=== PATIENT | male | born 1960 | race Caucasian/White ===

== ENCOUNTER 2023-08-21 18:00 | Outpatient (CLI) | payer OTHER, SELFPAY ==
[2023-08-21 16:56] LABS: Chloride 105 mmol/L (98-107); Potassium 4.4 mmoL/L (3.5-5.1); Sodium 139 mmol/L (136-145)
[2023-08-21 16:59] LABS: Alanine Aminotransferase 49 U/L (12-78); Albumin Level 4.3 g/dl (3.5-5.0); Albumin/Globulin Ratio 1.4 (1.1-1.8); Alkaline Phosphatase 79 U/L (38-126); Anion Gap 13.4 mEq/L (5-15); Aspartate Amino Transferase 50 U/L (17-59); Bilirubin,Total 0.9 mg/dl (0.2-1.3); Blood Urea Nitrogen 18 mg/dl (9-20); Calcium 9.5 mg/dl (8.4-10.2); Carbon Dioxide 25 mmol/L (22.0-30.0); Cholesterol 246 mg/dl (140-200); Estimated Glomerular Filt Rate 75 ml/min (>60); GFR (African American) 91 ML/MIN (>60); Globulin 3.1 g/dL (1.3-3.2); Glucose 92 mg/dl (74-100); Total Protein,Serum 7.4 g/dl (6.3-8.2); Triglycerides 140 mg/dl (30-150); VLDL Cholesterol 28 mg/dL (0-40)
[2023-08-21 17:00] LABS: Chol/HDL Ratio 4.9 (1-3.5); HDL Cholesterol 50 mg/dl (40-60)
[2023-08-21 17:03] LABS: Basophils % 0.7 % (0.1-2.0); Eosinophils # 0.2 K/mm3 (0.0-0.4); Eosinophils % 4.6 % (0.1-12.0); Hematocrit 52.7 % (42.0-52.0); Hemoglobin 17.5 g/dL (14.1-18.0); Lymphocytes # 1.1 K/mm3 (0.7-4.5); Lymphocytes % 22.2 % (10-50); Mean Corpuscular HGB Conc 33.1 g/dL (31.8-35.4); Mean Corpuscular Hemoglobin 32.7 pg (27.0-31.2); Mean Corpuscular Volume 98.7 fl (80-94); Mean Platelet Volume 10.1 fl (7.4-10.4); Monocytes # 0.4 K/mm3 (0.1-1.0); Monocytes % 8.5 % (1.7-9.3); Neutrophils # 3.2 K/mm3 (1.8-7.8); Neutrophils % 63.9 % (37.0-80.0); Platelet Count 165 K/mm3 (142-424); Red Blood Count 5.34 M/mm3 (4.60-6.20); Red Cell Distribution Width 14.4 % (11.5-17.5)
[2023-08-21 17:10] LABS: Direct LDL Cholesterol 154.16 mg/dL (100-129)
[2023-08-27 20:10] LABS: Free Testosterone (Direct) 2.6 pg/mL (6.6-18.1); Testosterone, Total, LC/MS 72.9 ng/dL (264.0-916.0)
== END 2023-08-21 23:59 | disposition home or self-care (01) ==
LOC: LAB.DROPOF 08-22 08:27
PROVIDERS: PCP Family Medicine; Visit Provider Family Medicine
DX: I10 Essential (primary) hypertension (principal)
CPT/HCPCS: 80053; 80061; 85025

== ENCOUNTER 2025-01-31 13:27 | Outpatient (CLI) | payer MEDICARE, BC, SELFPAY ==
--- NOTE | 2025-01-31 13:31 | XR_ITS ---
FINAL REPORT CLINICAL HISTORY: neck pain and stiffness after injury FINDINGS: AP, lateral, and oblique views of the cervical spine were obtained. Flexion and extension views were also obtained. There are postoperative changes from anterior fusion of C5 and C6. Alignment is normal. No acute fracture identified. There are large anterior osteophytes at C3 and C4. Multilevel degenerative disc disease is noted. Precervical soft tissues are unremarkable. Flexion and extension views were obtained. Alignment is stable through C6, but the C6-7 articulation and cervicothoracic junction are not well-visualized on the flexion or extension views. IMPRESSION: Degenerative changes without acute osseous abnormality of the cervical spine. Reviewed, Interpreted and Dictated by Samira Zhao MD Transcribed by Ninoska Andrade Authenticated and . [facility]
== END 2025-01-31 23:59 | disposition home or self-care (01) ==
LOC: RAD 13:29
PROVIDERS: PCP Family Medicine; Visit Provider Nurse Practitioner Family
DX: M47.812 Spondylosis without myelopathy or radiculopathy, cervical region (principal); M43.6 Torticollis
CPT/HCPCS: 72052

== ENCOUNTER 2025-03-07 16:00 | Outpatient (RCR) | payer MEDICARE, BC, SELFPAY ==
--- NOTE | 2025-02-22 08:59 | HMH.PTOPEV ---
PT Evaluation Rehab PT Outpatient Evaluation Start: 02/22/25 08:13 Freq: Status: Active Protocol: Document 02/22/25 08:13 PDESEROUX (Rec: 02/22/25 08:58 [email or web address] [id number]) E-signed By Garrick Gilmore, PT Outpatient Therapy Subjective History Subjective History Pt. is a 65 year old male who presents to [facility] Out[facility] Services in [place] for the PT outpatient initial evaluation this date(02/22/25 ) w/ c/o acute on chronic and constant R-sided cervical spine P!, stiffness, and popping of traumatic onset in November of this year. Pt. describes GERARDO secondary to slipping and falling backwards while trying to get into the tub and hitting his head on the cabinet. Pt. reports P! was getting some better until he had another fall. Pt. describes this second fall secondary to falling backwards off of a step ladder and hitting his head against the car. Pt. c/o sharp P! along R-sided cervical spine after the second fall. Pt. reports two weeks ago he was looking up to watch TV and felt a pop in his neck that helped to provide symptom relief. Pt . reports he can currently do everything I need to do. However, pt. c/o P! and stiffness when looking over his left shoulder to pull out of his driveway, looking up and watching television, and trying to lay his head flat on the yoga mat. Most recent diagnostic imaging unremarkable per pt. report. Pt. denies having any prescribed medication nor injections for current complaint. Pt. denies numbness nor tingling into neither upper extremity at this time. Pt. reports PMH of s/p C5-C6 anterior fusion and Hypertension. Current medications include beta-kirsten. New diagnosis of No cancer in past 12 months? Chief Complaint Pain,Spasms,Stiff,Clicks,Catches/Locks Symptom Type Ache,Sharp,Stabbing,Shooting Symptoms Relieved By Rest/Positioning Symptoms Aggravated Bending/Stooping,Physical Activity,Twisting By Prior Functional None Limitations Current Functional Housework,Desk Work/Reading,Driving,Recreation Activity Limitations Symptom Description Constant but Variable,Activity Dependent Level of pain today 4 (0-10) Pain scale - at its 3 best (0-10) Pain scale - at its 8 worst (0-10) Cervical Eval Palpation Cervical Muscles R Cervical Paraspinal,R CT Junction,R Upper Trapezius Cervical/Thoracic Tenderness,Spasm,Muscle Guarding Palpation Findings Posture Head/C-Spine Posture Flexed,C-Spine Flattened Sitting Position Head/C-Spine Posture Flexed,C-Spine Flattened Standing Position Flexibility Deficits Upper Trapezius (R) Severe Tightness Muscle Length Levaetor Scapulae (R) Severe Tightness Muscle Length Scalene Group Muscle (R) Severe Tightness Length Sternocleidomastoid (R) Severe Tightness Muscle Length Pectoralis Major (R) Severe Tightness Muscle Length Pectoralis Minor (R) Severe Tightness Muscle Length Passive Joint Mobility Cervical PIVM Dec: R C3/4 L C3/4 R C4/5 L C4/5 R C5/6 L C5/6 R C6/7 L C6/7 R C7/T1 L C7/T1 WNL: R OA L OA R AA L AA R C2/3 L C2/3 AROM Cervical Spine 13 Extension Active Range of Motion ( degrees) Cervical Spine 37 Flexion Active Range of Motion (degrees) Cervical Spine Right 27 Lateral Flexion Active Range of Motion (degrees) Cervical Spine Left 17 Lateral Flexion Active Range of Motion (degrees) Cervical Spine Right 41 Rotation Active Range of Motion ( degrees) Cervical Spine Left 37 Rotation Active Range of Motion ( degrees) MMT Bilateral Deltoid (C5) 4+ Good+ Biceps Brachii 4+ Good+ Strength Grade Wrist Extension 4+ Good+ Strength Grade Triceps Brachii 4+ Good+ Strength Grade Wrist Flexion 4+ Good+ Strength Grade Extensor Pollicis 4+ Good+ Longus Strength Grade Finger Abduction 4+ Good+ Strength Grade Altered Sensation Comment B UE light touch sensation vocalized symmetrical Special Test C-Spine Foraminal Positive Left,Positive Right Compression ( [place]) Test C-spine Verterbral Central P/A [place],Right P/A [place] Accessory Movements that Elicit Symptoms C-Spine Foraminal Negative Distraction Test C-Spine Compression Negative Left,Negative Right Test Neck Disability Index Neck Disability Index Section 1: Pain I have no pain at the moment Intensity Section 2: Personal I can look after myself normally without causing extra Care (washing, pain dressing, etc.) Section 3: Lifting I can lift heavy weights without extra pain Section 4: Reading I can read as much as I want to with no pain in my neck Section 5: Headaches I have no headaches at all Section 6: I can concentrate fully when I want to with no Concentration difficulty Section 7: Work I can do as much work as I want to Section 8: Driving I can drive my car as long as I want with slight pain in my neck Section 9: Sleeping My sleep is slightly disturbed (less than 1 hr sleepless) Section 10: I am able to engage in all my recreation activities Recreation with some pain in NDI Score 3 Outpatient Therapy Assessment Impairments Problems/ Palpation Tenderness,Impaired Range of Motion,Impaired Impairmments Sitting,Impaired Driving,Impaired Bending,Impaired Recreational Activities,Subjective C/O Pain,Impaired Self Care/Self Management Prognosis Rehab Potential Good Comment w/ HEP compliancy Clinical Impression Consistent with Yes Diagnosis Consistent with Cervical Radiculopathy, R PT Patient Goals PT Patient Goals PT Short Term STG#1.) Pt. will subjectively report comparable P! a 5/ Patient Goals 10 @ worse in 4 wks. for improved QOL. STG#2.) Pt. will demonstrate compliancy w/ initial HEP in 4 wks. for improved prognosis w/ Physical Therapy. STG#3.) Pt. will exhibit grade 2 +TTP to C4/C5 central and R-sided grade I-II mobs. in 4 wks. for improved QOL . PT Bricklayer Paving Brick Patient LTG#1.) Pt. will subjectively report comparable P! a 2/ Goals 10 @ worse in 6-8 wks. for improved QOL. LTG#2.) Pt. will demonstrate compliancy w/ advanced HEP in 6-8 wks. for optimal prognosis w/ Physical Therapy. LTG#3.) Pt. will exhibit grade 1 +TTP to C4/C5 central and R-sided grade I-II mobs. in 6-8 wks. for improved QOL. LTG#4.) Pt. will demonstrate a 10 degree improvement in L-sided cervical rotation in 6-8 wks. to return to looking in his blind spot w/o difficulty while pulling out of his driveway. LTG#5.) Pt. will demonstrate a 8 degree improvement in cervical spine ext. ROM in 6-8 wks. to return to sitting and watching TV for 20' w/o difficulty. Outpatient Therapy Plan of Care Treatment Plan May Include Therapeutic Exercise Yes Including Home Exercise Program Manual Therapy Yes Techniques Neuromuscular Re- Yes education Therapeutic Yes Activities to Return to Previous Functional/Work Level ADL/Self Care Yes Education Mechanical Traction No: hx. s/p C-spine fusion Dry Needling Yes Thermal Modalities Yes Electrical Yes Stimulation Ultrasound/ Yes Phonophoresis Iontophoresis Yes Vasopneumatic Yes Compression Pump Massage Yes Eval/Re-Eval Yes Frequency Times per week 2 Duration Number of Weeks 6-8 Addendums This patient is a No candidate for social or vocational rehab ? Patient/Guardian Yes verbally acknowledges understanding of treatment program and consents to further treatment? Patient/Guardian Yes verbally acknowledges understanding of diagnosis, prognosis and goals for treatment? Eval Complexity PT Charges 90064 - Low Complexity Shoulder/Elbow Eval Shoulder Objective Measurements Elbow Objective Measurements PHYSICIAN CERTIFICATION: I certify the specified therapy services for Blaise Wagner are required, authorized, and reviewed every 30 days.
== END 2025-03-07 23:59 | disposition home or self-care (01) ==
LOC: PT.CARL 16:00
PROVIDERS: PCP Family Medicine; Visit Provider Nurse Practitioner Family
DX: M54.2 Cervicalgia (principal)
CPT/HCPCS: 97110; 97112; 97161